=== PATIENT | male | born 1990 | race Caucasian/White ===

== ENCOUNTER 2019-12-20 23:35 | Emergency (ER) | payer SELFPAY ==
[2019-12-20 23:47] VITALS: BP 135/95; TEMP 98.2; O2SAT 100
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
== END 2019-12-21 00:15 | disposition left against medical advice (07) ==
LOC: ER 23:35
DX: S01.81XA Laceration without foreign body of other part of head, initial encounter (principal); S09.90XA Unspecified injury of head, initial encounter; S00.81XA Abrasion of other part of head, initial encounter; S00.83XA Contusion of other part of head, initial encounter; Z53.29 Procedure and treatment not carried out because of patient's decision for other reasons; F17.200 Nicotine dependence, unspecified, uncomplicated; V89.9XXA Person injured in unspecified vehicle accident, initial encounter; Y92.9 Unspecified place or not applicable

== ENCOUNTER 2020-05-04 13:30 | Emergency (ER) | payer SELFPAY ==
[2020-05-04] MEDS ORDERED: LIDOCAINE 1% W/ EPINEPHRINE 20 ML VIAL INJ ONE (14:19)
[2020-05-04] MEDS ORDERED: TETANUS,DIPHTHERIA,PERTUSSIS 1 EA SYG IM ONE (14:37)
[2020-05-04] MEDS ORDERED: NEOMYCIN-BACITRACIN-POLYMYXIN 0.9 GM UD TOP ONE (14:47)
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
[2020-05-04 15:23] VITALS: BP 147/95; TEMP 97.1; O2SAT 98
== END 2020-05-04 15:21 | disposition home or self-care (01) ==
LOC: ER 13:30
DX: S81.812A Laceration without foreign body, left lower leg, initial encounter (principal); Z87.891 Personal history of nicotine dependence; Z88.0 Allergy status to penicillin; Z88.2 Allergy status to sulfonamides; V29.3XXA Motorcycle rider (driver) (passenger) injured in unspecified nontraffic accident, initial encounter; Y92.410 Unspecified street and highway as the place of occurrence of the external cause